=== PATIENT | male | born 1990 | race Hispanic/Latino ===

== ENCOUNTER 2023-04-18 19:21 | Emergency (ER) | payer SELFPAY ==
--- OUTSIDE RECORDS SUMMARY | 2023-04-18 19:24 | XMS REPORT | Continuity of Care Document ---
:1990 Author Organization [facility] t Address [address] [facility] [address] [place] [address] Care Team Providers Name Role Phone AKHIL LOZADA Attending Clinician Unavailable ADDISON HOGUE Attending Clinician Unavailable OZZY MARAVILLA Attending Clinician Unavailable SAMARA HUNG Attending Clinician Unavailable MYA AVILES Attending Clinician Unavailable MYA AVILES Admitting Clinician Unavailable Payers Payer Name Policy Type Policy Number Effective Date Expiration Date S ource Problems This patient has no known problems. Allergies, Adverse Reactions, Alerts This patient has no known allergies or adverse reactions. Medications This patient has no known medications. Procedures This patient has no known procedures. Encounters Start End Encounter Admission Attending Care Care Encounter Source Date/Time Date/Time Type Type Clinicians Facility Department ID 2021-12-29 Inpatient [facility] [id number] [facility] 14:04:06 [id number] [place] 2021-12-22 Inpatient [facility] [id number] [facility] 09:17:42 [id number] [place] 2021-12-18 Inpatient TEXANA TEXANA [id number] [place] 07:55:17 [id number] [place] 2022-05-01 2022-05-01 emergency [id number] 01:15:00 04:15:00 [phone] [id number] 5eb 2022-05-01 2022-05-01 Emergency ER CATKAYECU, [facility] [id number] [place] 01:15:00 04:15:00 AKHIL [id number] Critical access hospital 2022-04-30 2022-04-30 emergency [id number] 16:44:00 19:30:00 [id number] 2022-04-30 2022-04-30 Emergency ER LENNIE, [facility] [id number] [place] 16:44:00 19:30:00 ADDISON -[id number] Critical access hospital 2021-12-16 2021-12-16 Emergency ER TAIWO, [facility] [id number] [place] 20:43:00 22:26:00 OZZY [id number] Critical access hospital 2013-08-09 2013-08-09 Emergency ER ABHILASH, [facility] [id number] [place] 16:24:00 18:33:00 SAMARA [id number] Critical access hospital 2008-11-03 2008-11-03 Inpatient ER TRACI, [facility] [id number] [place] 05:03:00 15:15:00 MYA -[id number] Critical access hospital Results This patient has no known results.
--- NOTE | 2023-04-18 21:09 | ER ---
Nurse's Notes [facility] Name: Gt Lucio Age: 33 yrs Sex: Male : 1990 Arrival Date: 04/18/2023 Time: 19:21 Bed IW1 Private MD: Diagnosis: SARS-associated coronavirus as the cause of diseases classified elsewhere Presentation: 04/18 19:44 Chief complaint: Patient states: Cough, low grade temp since this morning. Coronavirus nj1 screen: Vaccine status: Patient reports being unvaccinated. Ebola Screen: Patient denies travel to an Ebola-affected area in the 21 days before illness onset. Initial Sepsis Screen: Does the patient meet any 2 criteria? No. Patient's initial sepsis screen is negative. Does the patient have a suspected source of infection? No. Patient's initial sepsis screen is negative. Risk Assessment: Do you want to hurt yourself or someone else? Patient reports no desire to harm self or others. Onset of symptoms was April 18, 2023. 19:44 Method Of Arrival: Ambulatory nj 19:44 Acuity: SUJEY 4 nj1 Triage Assessment: 19:46 General: Appears in no apparent distress. comfortable, Behavior is calm, cooperative, nj1 appropriate for age. Pain: Complains of pain in Head, throat Pain currently is 4 out of 10 on a pain scale. EENT: Reports Headache. Neuro: Level of Consciousness is awake, alert, obeys commands, Oriented to person, place, time, situation. Cardiovascular: Patient's skin is warm and dry. Respiratory: Airway is patent Respiratory effort is even, unlabored. Historical: - Allergies: 19:45 No Known Allergies; nj1 - PMHx: 19:45 None; nj1 - Immunization history:: Client reports having NOT received the Covid vaccine. - Social history:: Smoking status: Patient/guardian denies using tobacco, Stopped _ months ago 1. Screenin:48 [facility] ED Fall Risk Assessment (Adult) Score/Fall Risk Level 0 - 2 = Low Risk nj Oriented to surroundings, Maintained a safe environment, Hourly rounding (assess needs \T\ fall precautionary measures) done. Abuse screen: Denies threats or abuse. Denies injuries from another. Nutritional screening: No deficits noted. Tuberculosis screening: No symptoms or risk factors identified. Vital Signs: 19:44 BP 138 / 80; Pulse 88; Resp 18; Temp 98.7; Pulse Ox 100% on R/A; Weight 87.54 kg; nj1 Height 5 ft. 5 in. ; Pain 4/10; 19:44 Body Mass Index 32.12 (87.54 kg, 165.1 cm) nj1 19:44 Pain Scale: Adult banner ED Course: 19:25 Patient arrived in ED. 3 19:25 [facility] kb 19:25 Osmin Hughes MD is Attending Physician. kb 19:45 Triage completed. nj1 19:46 Arm band placed on right wrist. ri1 19:49 Patient has correct armband on for positive identification. ri1 21:19 No provider procedures requiring assistance completed. Patient did not have IV access bp during this emergency room visit. Administered Medications: No medications were administered Outcome: 21:08 Discharge ordered by MD. kb 21:19 Discharged to home ambulatory, bp 21:19 Condition: stable 21:19 Discharge instructions given to patient, Instructed on discharge instructions, follow up and referral plans. Demonstrated understanding of instructions, follow-up care, 21:19 Patient left the ED. bp Signatures: Jil Brar FNP-C FNP-Ckb Peltier, Brian, RN RN Esme Gonzalez 3 Emily Russell, RN RN banner Corrections: (The following items were deleted from the chart) 19:46 19:44 Coronavirus screen: Vaccine status: [place] [id number]
--- NOTE | 2023-04-18 21:09 | EDPHYS ---
Physician Documentation [facility] Name: Gt Lucio Age: 33 yrs Sex: Male : 1990 Arrival Date: 04/18/2023 Time: 19:21 Bed IW1 Private MD: ED Physician Osmin Hughes HPI: 04/18 21:08 This 33 yrs old Male presents to ER via Ambulatory with complaints of Fever. kb 21:08 Patient is a 33-year-old male with no medical history who presents for cough, kb congestion, sore throat and fever that started this morning. Denies chest pain or shortness of breath. Historical: - Allergies: 19:45 No Known Allergies; nj1 - PMHx: 19:45 None; nj1 - Immunization history:: Client reports having NOT received the Covid vaccine. - Social history:: Smoking status: Patient/guardian denies using tobacco, Stopped _ months ago 1. ROS: 21:07 Abdomen/GI: Negative for abdominal pain, nausea, vomiting, diarrhea, and constipation, kb 21:07 Constitutional: Positive for fever, 21:07 Respiratory: Positive for cough, 21:07 All other systems are negative, Exam: 21:07 Constitutional: This is a well developed, well nourished patient who is awake, alert, kb and in no acute distress. Head/Face: Normocephalic, atraumatic. ENT: Moist Mucous membranes Cardiovascular: Regular rate Respiratory: Respirations even and unlabored. No increased work of breathing. Talking in full sentences Abdomen/GI: Soft, non-tender. No distention Skin: Warm, dry with normal turgor. Normal color. MS/ Extremity: Pulses equal, no cyanosis. Neurovascular intact. Full, normal range of motion. Neuro: Awake and alert, GCS 15, oriented to person, place, time, and situation. Moves all extremities. Normal gait. Vital Signs: 19:44 BP 138 / 80; Pulse 88; Resp 18; Temp 98.7; Pulse Ox 100% on R/A; Weight 87.54 kg; nj1 Height 5 ft. 5 in. ; Pain 4/10; 19:44 Body Mass Index 32.12 (87.54 kg, 165.1 cm) [facility] 19:44 Pain Scale: Adult [facility] MDM: 19:25 Patient medically screened. kb 21:07 Differential diagnosis: covid, flu, uri, strep. Data reviewed: vital signs, nurses kb notes. I considered the following discharge prescriptions or medication management in the emergency department I discussed and recommended Over The Counter medications, Antibiotics: At this time antibiotics are not recommended. Counseling: I had a detailed discussion with the patient and/or guardian regarding the historical points, exam findings, and any diagnostic results supporting the discharge/admit diagnosis, lab results, the need for outpatient follow up, a family practitioner, to return to the emergency department if symptoms worsen or persist or if there are any questions or concerns that arise at home. 04/18 19:46 Order name: Flu; Complete Time: 21: kb 04/18 19:46 Order name: SARS-COV-2 RT PCR; Complete Time: : kb 04/18 19:46 Order name: Strep kb 04/18 21:04 Order name: Throat Culture EDMS Administered Medications: No medications were administered Disposition Summary: 04/18/23 21:08 Discharge Ordered Notes: Location: Home kb Condition: Stable kb Diagnosis - SARS-associated coronavirus as the cause of diseases classified elsewhere kb Followup: kb - With: Emergency Department - When: As needed - Reason: Worsening of condition Followup: kb - With: Private Physician - When: 2 - 3 days - Reason: Recheck today's complaints, Continuance of care, Re-evaluation by your physician Discharge Instructions: - Discharge Summary Sheet kb - COVID-19 kb - Viral Illness, Adult kb Forms: - Work release form kb - Medication Reconciliation Form kb - Thank You Letter kb - Antibiotic Education kb - Prescription Opioid Use kb - Patient Portal Instructions kb - Leadership Thank You Letter kb Addendum: 04/23/2023 07:52 I was immediately available for consultation during this patient's visit. I did not e c2 personally see the patient or guide the patient's care. . Signatures: Dispatcher [employer] Jil Pritchard FNP-C FNP-Emily Person RN RN nj1 Osmin Hughes MD MD ec2
[2023-04-18 21:23] VITALS: BP 138/80; TEMP 98.7; O2SAT 100
== END 2023-04-18 21:19 | disposition home or self-care (01) ==
LOC: ER 19:21
DX: U07.1 COVID-19 (principal)
CPT/HCPCS: 87070; 87081; 87635; 87804; 99282

== ENCOUNTER 2024-03-27 21:02 | Emergency (ER) | payer SELFPAY ==
--- OUTSIDE RECORDS SUMMARY | 2024-03-27 21:04 | XMS REPORT | Continuity of Care Document ---
Author Name Unknown Address [address] [facility] [place] [address] [facility] thconnect Address [address] [facility] [address] [place] [address] Care Team Providers Care Pump Servicer Supervisor Name Role Phone AKHIL LOZDAA Attending Clinician Unavailable ADDISON HOGUE Attending Clinician UnavailOZZY Estes Attending Clinician Unavailable SAMARA HUNG Attending Clinician Unavailab MYA Hernandez Attending Clinician Unavailable MYA AVILES Admitting Clinician Unavailable Payers Payer Name Policy Type Policy Number Effective Date Expirati on Date Source Encounters Start Date/Time End Date/Time Encounter Type Admission Type Attending Clinicians Care Facility Care Department Encounter ID Source 2021-12-29 14:04:06 Inpatient [facility] [id number] [facility] 2021-12-22 09:17:42 Inpatient [facility] [id number] [facility] 2021-12-18 07:55:17 Inpatient [facility] [id number] [facility] 2022-05-01 01:15:00 2022-05-01 04:15:00 emergency [id number] 2022-05-01 01:15:00 2022-05-01 04:15:00 Emergency ER AKHIL LOZADA [facility] [id number] [facility] 2022-04-30 16:44:00 2022-04-30 19:30:00 emergency [id number] 2022-04-30 16:44:00 2022-04-30 19:30:00 Emergency ER ADDISON HOGUE [facility] [id number] [facility] 2021-12-16 20:43:00 2021-12-16 22:26:00 Emergency ER FOUZIAMYESHARoel OZZY [facility] [id number] [facility] 2013-08-09 16:24:00 2013-08-09 18:33:00 Emergency ER SAMARA HUNG [facility] [id number] [facility] 2008-11-03 05:03:00 2008-11-03 15:15:00 Inpatient ER MYA AVILES [facility] [id number] [facility]
--- NOTE | 2024-03-27 22:15 | RAD REPORT ---
EXAMINATION: Elbow Left 3 View CLINICAL INDICATION: Male, 34 years old. PAIN TECHNIQUE: 3 view radiographs of the left elbow were obtained. COMPARISON: No prior exam. FINDINGS: No evidence of fracture or dislocation. Normal alignment. No joint effusion. No evidence of arthropathy. Exophytic osseous growth arising from the distal shaft of the humerus, projecting somewhat caudally, suggesting an osteochondroma. Enthesopathy at the triceps tendon attachment. Soft tissues are unremarkable. IMPRESSION: No acute osseous abnormality. 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 Enthesopathy at the triceps tendon attachment.
--- NOTE | 2024-03-27 22:21 | EDPHYS ---
Physician Documentation [facility] Name: Gt Lucio Age: 34 yrs Sex: Male : 1990 Arrival Date: 03/27/2024 Time: 21:02 Bed 12 Private MD: ED Physician Kings Garcia HPI: 03/27 21:43 This 34 yrs old Male presents to ER via Ambulatory with complaints of ELBOW kb SWELLING/PAIN. 21:43 Pt is a 34 year old male who presents for left elbow pain that started 3 weeks ago and kb started developing slight swelling a few days ago. Denies injury or trauma. Pain aggravated by movement . Historical: - Allergies: 21:10 No Known Allergies; kd3 - Immunization history:: Adult Immunizations up to date. - Infectious Disease History:: Denies. - Social history:: Smoking status: Patient reports the use of cigarette tobacco products, denies chronic smoking, but will smoke occasionally. ROS: 21:42 Constitutional: As per HPI kb Exam: 21:42 Constitutional: This is a well developed, well nourished patient who is awake, alert, kb and in no acute distress. Head/Face: Normocephalic, atraumatic. ENT: Moist Mucous membranes Respiratory: Respirations even and unlabored. No increased work of breathing. Talking in full sentences Skin: Warm, dry with normal turgor. Normal color. Neuro: Awake and alert, GCS 15, oriented to person, place, time, and situation. 21:42 Musculoskeletal/extremity: Extremities: grossly normal except: noted in the left elbow: pain, swelling, tenderness, ROM: limited active range of motion due to pain, in the left elbow, Circulation is intact in all extremities. Sensation intact. Vital Signs: 21:09 Pulse 102; Resp 16; Temp 98.6(O); Pulse Ox 96% on R/A; Weight 98.88 kg; Height 5 ft. 6 kd3 in. ; Pain 8/10; 21:10 BP 110 / 73; kd3 22:48 BP 108 / 68; Pulse 99; Resp 16; Pulse Ox 97% ; vc1 21:09 Body Mass Index 35.19 (98.88 kg, 167.64 cm) kd3 21:09 Pain Scale: Adult kd3 MDM: 21:12 Medical Screening Exam initiated kb 21:42 Differential diagnosis: fracture, strain, bursitis. Data reviewed: vital signs, nurses kb notes. 22:19 Counseling: I had a detailed discussion with the patient and/or guardian regarding the kb historical points, exam findings, and any diagnostic results supporting the discharge/admit diagnosis, radiology results, the need for outpatient follow up, a orthopedic surgeon, to return to the emergency department if symptoms worsen or persist or if there are any questions or concerns that arise at home. 03/27 21:13 Order name: Elbow Left 3 View XRAY; Complete Time: 22:19 kb Administered Medications: 22:46 Drug: Ketorolac IM 30 mg IM once Route: IM; Site: left deltoid; vc1 22:46 Follow up: Response: Medication administered at discharge. vc1 Disposition: 03/28 03:55 Co-signature as Attending Physician, Kings Garcia MD I agree with the assessment sp4 and plan of care. I reviewed the patient's care provided by the Advanced Practice Provider and agree with the diagnosis and treatment plan. Disposition Summary: 03/27/24 22:20 Discharge Ordered Notes: Location: Home kb Condition: Stable kb Diagnosis - Pain in left elbow kb Followup: kb - With: Emergency Department - When: As needed - Reason: Worsening of condition Followup: kb - With: Private Physician - When: 2 - 3 days - Reason: Recheck today's complaints, Continuance of care, Re-evaluation by your physician Discharge Instructions: - Discharge Summary Sheet kb - Musculoskeletal Pain kb Forms: - Medication Reconciliation Form kb - Antibiotic Education kb - Prescription Opioid Use kb - Patient Portal Instructions kb - Leadership Thank You Letter kb Prescriptions: - Diclofenac Sodium 75 mg Oral tablet, delayed release (enteric coated) - take 1 tablet ORAL route 2 times per day As needed; 30 tablet; Refills: 0, kb Product Selection Permitted Signatures: Dispatcher [employer] Jil Pritchard FNP-C FNP-Ckb Doucette, Kyli RN RN kd3 Dary Celis RN RN vc1 Kings Garcia MD MD sp4
--- NOTE | 2024-03-27 22:21 | ER ---
Nurse's Notes [facility] Name: Gt Lucio Age: 34 yrs Sex: Male : 1990 Arrival Date: 03/27/2024 Time: 21:02 Bed 12 Private MD: Diagnosis: Pain in left elbow Presentation: 03/27 21:10 Chief complaint: Patient states: I don't remember injuring my left elbow but about a kd3 month ago, my elbow has started to hurt. It is swelling a little and it is hard to bend it. Coronavirus screen: Vaccine status: Patient reports being unvaccinated. Ebola Screen: No symptoms or risks identified at this time. Initial Sepsis Screen: Does the patient meet any 2 criteria? No. Patient's initial sepsis screen is negative. Does the patient have a suspected source of infection? No. Patient's initial sepsis screen is negative. Risk Assessment: Do you want to hurt yourself or someone else? Patient reports no desire to harm self or others. Onset of symptoms was February 2024. 21:10 Method Of Arrival: Ambulatory kd3 21:10 Acuity: SUJEY 4 kd3 Triage Assessment: 21:10 General: Appears in no apparent distress. Behavior is calm, cooperative. Pain: kd3 Complains of pain in left elbow. Historical: - Allergies: 21:10 No Known Allergies; kd3 - Immunization history:: Adult Immunizations up to date. - Infectious Disease History:: Denies. - Social history:: Smoking status: Patient reports the use of cigarette tobacco products, denies chronic smoking, but will smoke occasionally. Screenin:52 [facility] ED Fall Risk Assessment (Adult) History of falling in the last 3 months, kd3 including since admission No falls in past 3 months (0 pts) Confusion or Disorientation No (0 pts) Intoxicated or Sedated No (0 pts) Impaired Gait No (0 pts) Mobility Assist Device Used No (0 pt) Altered Elimination No (0 pt) Score/Fall Risk Level 0 - 2 = Low Risk Oriented to surroundings. Abuse screen: Denies threats or abuse. Denies injuries from another. Nutritional screening: No deficits noted. Tuberculosis screening: No symptoms or risk factors identified. Assessment: 21:52 General: X-ray at bedside . kd3 Vital Signs: 21:09 Pulse 102; Resp 16; Temp 98.6(O); Pulse Ox 96% on R/A; Weight 98.88 kg; Height 5 ft. 6 kd3 in. ; Pain 8/10; 21:10 BP 110 / 73; kd3 22:48 BP 108 / 68; Pulse 99; Resp 16; Pulse Ox 97% ; vc1 21:09 Body Mass Index 35.19 (98.88 kg, 167.64 cm) kd3 21:09 Pain Scale: Adult kd3 ED Course: 21:04 Patient arrived in ED. jj6 21:09 Merry Koenig, RN is Primary Nurse. kd3 21:10 Arm band placed on right wrist. kd3 21:12 [facility]C [facility] kb 21:12 Kings Garcia MD is Attending Physician. kb 21:12 Triage completed. kd3 21:53 Patient has correct armband on for positive identification. Provided Education on: kd3 X-ray . 21:56 Elbow Left 3 View XRAY In Process Unspecified. EDMS 22:49 No provider procedures requiring assistance completed. Patient did not have IV access vc1 during this emergency room visit. Administered Medications: 22:46 Drug: Ketorolac IM 30 mg IM once Route: IM; Site: left deltoid; vc1 22:46 Follow up: Response: Medication administered at discharge. vc1 Medication: 21:53 VIS not applicable for this client. kd3 Outcome: 22:20 Discharge ordered by . kb 22:49 Discharged to home ambulatory, vc1 22:49 Condition: good 22:49 Discharge instructions given to patient, Instructed on discharge instructions, follow up and referral plans. medication usage, Demonstrated understanding of instructions, follow-up care, medications, Prescriptions given X 1, 23:02 Patient left the ED. vc1 Signatures: Dispatcher [employer] EDMS Jil Brar FNP-C FNP-Ckb Jeffries, Jennifer jj6 Merry Koenig, RN RN kd3 Dary Celis RN RN vc1
[2024-03-27] MEDS ORDERED: KETOROLAC 30 MG/ML INJ ONE (22:36)
[2024-03-28 05:21] VITALS: TEMP 98.6
[2024-03-28 05:39] VITALS: BP 108/68; O2SAT 97
== END 2024-03-27 23:02 | disposition home or self-care (01) ==
LOC: ER 21:02
DX: M25.522 Pain in left elbow (principal)
CPT/HCPCS: 96372; 99284

== ENCOUNTER 2024-04-17 12:27 | Emergency (ER) | payer SELFPAY ==
--- OUTSIDE RECORDS SUMMARY | 2024-04-17 12:30 | XMS REPORT | Continuity of Care Document ---
Author Name Unknown Address [address] [facility] [place] [address] [facility] thconnect Address [address] [facility] [place] [address] Care Team Providers Care Change Coordinator Name Role Phone AKHIL LOZADA Attending Clinician [...] Department Encounter ID Source 2021-12-29 14:04:06 Inpatient [facility] [id number] [facility] 2021-12-22 09:17:42 Inpatient [facility] [id number] [facility] 2021-12-18 07:55:17 Inpatient [facility] [id number] [facility] 2022-05-01 01:15:00 2022-05-01 04:15:00 emergency [id number] 2022-05-01 01:15:00 2022-05-01 04:15:00 Emergency ER AKHIL LZOADA [facility] [id number] [facility] 2022-04-30 16:44:00 2022-04-30 19:30:00 emergency [id number] 2022-04-30 16:44:00 2022-04-30 19:30:00 Emergency ER ADDISON HOGUE [facility] [id number] [facility] 2021-12-16 20:43:00 2021-12-16 22:26:00 Emergency ER SERGIOCYNDIMARY JANEMYESHARoelOZZY [facility] [id number] [facility] 2013-08-09 16:24:00 2013-08-09 18:33:00 Emergency ER SAMARA HUNG [facility] [id number] [facility] 2008-11-03 05:03:00 2008-11-03 15:15:00 Inpatient ER MYA AVILES [facility] [id number] [facility]
--- NOTE | 2024-04-17 13:57 | RAD REPORT ---
EXAMINATION: US LEFT UPPER EXTREMITY VENOUS DOPPLER CLINICAL INDICATION: Pain;Swelling TECHNIQUE: Complete bilateral duplex sonography of the LEFT upper extremity veins was performed. The examination included compression for vein patency, color Doppler imaging and flow augmentation in response to distal compression of the internal jugular, brachiocephalic, subclavian, axillary, brachi al, radial, ulnar, cephalic and basilic veins. COMPARISON: No prior exam. FINDINGS: Duplex sonography testing of the veins of the LEFT upper extremity was performed. Color flow imaging shows all veins to be compressible with [id number] color filling. Pulsatile and phasic flow is present within all upper extremity deep and superficial veins examined. IMPRESSION: There is no deep vein or superficial vein thrombosis.
[2024-04-17] MEDS ORDERED: KETOROLAC 30 MG/ML INJ ONE (14:13)
--- NOTE | 2024-04-17 14:16 | EDPHYS ---
Physician Documentation [facility] Name: Gt Lucio Age: 34 yrs Sex: Male : 1990 Arrival Date: 04/17/2024 Time: 12:27 Bed 11 Private MD: ED Physician Jann Wright HPI: 04/17 13:38 This 34 yrs old Male presents to ER via Ambulatory with complaints of ELBOW kb SWELLING. 13:38 Pt is a 34 year old male who presents for pain and swelling to left elbow that started kb one week ago. Pain aggravated by bending elbow. Reports he had similar symptoms one month ago after donating plasma and they hit his tendon. States he took antibiotics and the swelling went away, but once the antibiotics were completed the symptoms started coming back. Denies injury or trauma. pain is to outer most aspect of elbow, not in the joint itself. . 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 - Infectious Disease History:: Denies. - Social history:: Smoking status: Patient/guardian denies using tobacco, Stopped _ months ago .25 Patient uses alcohol, states stopped drinking last . ROS: 13:06 Constitutional: As per HPI kb Exam: 13:37 Constitutional: This is a well developed, well nourished patient who is awake, alert, kb and in no acute distress. Head/Face: Normocephalic, atraumatic. ENT: Moist Mucous membranes Cardiovascular: Regular rate Respiratory: Respirations even and unlabored. No increased work of breathing. Talking in full sentences Skin: Warm, dry with normal turgor. Normal color. Neuro: Awake and alert, GCS 15, oriented to person, place, time, and situation. 13:37 Musculoskeletal/extremity: Extremities: grossly normal except: noted in the left elbow: pain, swelling, tenderness, ROM: limited active range of motion due to pain, Circulation is intact in all extremities. Sensation intact. Vital Signs: 12:39 BP 162 / 92; Pulse 78; Resp 17; Temp 98.2(O); Pulse Ox 100% on R/A; MAP 112 mmHg; tm6 Weight 97.98 kg; Height 5 ft. 6 in. ; Pain 4/10; 14:24 BP 128 / 80; Pulse 75; Resp 16; Temp 98.2; Pulse Ox 100% on R/A; MAP 93 mmHg; Pain 2/10;tm6 12:39 Body Mass Index 34.86 (97.98 kg, 167.64 cm) tm6 12:39 Pain Scale: Adult tm6 14:24 Pain Scale: Adult tm6 MDM: 13:00 Medical Screening Exam initiated kb 13:38 Data reviewed: vital signs, nurses notes. kb 14:14 Differential diagnosis: tendonitis, bursitis, dvt. Counseling: I had a detailed kb discussion with the patient and/or guardian regarding the historical points, exam findings, and any diagnostic results supporting the discharge/admit diagnosis, radiology results, the need for outpatient follow up, a orthopedic surgeon, to return to the emergency department if symptoms worsen or persist or if there are any questions or concerns that arise at home. 14:15 Test considered but Not performed: X-ray: xray considered but was previously done and kb normal. 14:16 ED course: Pt educated on need to rest elbow. States he was putting up a fence 3 days kb ago and believes that is what caused it to start swelling again. Educated on using a brace, icing area and follow up with orthopedics. . 04/17 13:14 Order name: UPPER EXTREMITY VENOUS UNILATE; Complete Time: 13:58 EDMS 04/17 14:14 Order name: Preston Wrap; Complete Time: 14:23 kb Administered Medications: 14:16 Drug: Ketorolac IM 30 mg IM once Route: IM; Site: left deltoid; tm6 14:16 Follow up: Response: Medication administered at discharge. tm6 Disposition: 16:51 Co-signature as Attending Physician, Jann Wright MD I reviewed the patient's care rt provided by the Advanced Practice Provider and agree with the diagnosis and treatment plan. Disposition Summary: 04/17/24 14:15 Discharge Ordered Notes: Location: Home kb Condition: Stable kb Diagnosis - Pain in left elbow kb Followup: kb - With: Emergency Department - When: As needed - Reason: Worsening of condition Followup: kb - With: Private Physician - When: 2 - 3 days - Reason: Recheck today's complaints, Continuance of care, Re-evaluation by your physician Discharge Instructions: - Discharge Summary Sheet kb - Tennis Elbow, [id number] kb Forms: - Medication Reconciliation Form kb - Antibiotic Education kb - Prescription Opioid Use kb - Patient Portal Instructions kb - Leadership Thank You Letter kb Prescriptions: - Diclofenac Sodium 75 mg Oral tablet, delayed release (enteric coated) - take 1 tablet ORAL route 2 times per day As needed; 30 tablet; Refills: 0, kb Product Selection Permitted Signatures: Dispatcher [employer] EDJil Sanabria, PERFUMER-C PERFUMER-Ckb Jann Wright MD MD rt [facility] RN RN tm6 Corrections: (The following items were deleted from the chart) 12: 12:42 PSHx: None; tm6 tm6 1244 12:42 PSHx: left arm -- cut tendon and nerve damage; tm6 tm6 13:14 13:07 Extremity Venous Uni [id number] ordered. EDMS EDMS
--- NOTE | 2024-04-17 14:16 | ER ---
Nurse's Notes [facility] Name: Gt Lucio Age: 34 yrs Sex: Male : 1990 Arrival Date: 04/17/2024 Time: 12:27 Bed 11 Private MD: Diagnosis: Pain in left elbow Presentation: 04/17 12:39 Chief complaint: Patient states: swollen elbow started a few weeks ago, they said I tm6 have an infection in my tendon and gave me an antibiotic. It got a little better, but slowly has started to come back. It is swollen again and painful. Coronavirus screen: Client denies travel out of the [place] in the last 14 days. Ebola Screen: Patient negative for fever greater than or equal to 101.5 degrees Fahrenheit, and additional compatible Ebola Virus Disease symptoms Patient denies exposure to infectious person. Patient denies travel to an Ebola-affected area in the 21 days before illness onset. No symptoms or risks identified at this time. Initial Sepsis Screen: Does the patient meet any 2 criteria? No. Patient's initial sepsis screen is negative. Does the patient have a suspected source of infection? No. Patient's initial sepsis screen is negative. Risk Assessment: Do you want to hurt yourself or someone else? Patient reports no desire to harm self or others. Onset of symptoms was March 27, 2024. 12:39 Method Of Arrival: Ambulatory tm6 12:39 Acuity: SUJEY 3 tm6 Triage Assessment: 12:43 General: Appears in no apparent distress. Behavior is calm, cooperative. Pain: tm6 Complains of pain in left tricep and left elbow Pain currently is 5 out of 10 on a pain scale. at worst was 10 out of 10 on a pain scale. Pain began a few weeks ago. EENT: No signs and/or symptoms were reported regarding the EENT system. Neuro: Level of Consciousness is awake, alert, obeys commands, Oriented to person, place, time, situation. Cardiovascular: Patient's skin is warm and dry. Respiratory: Airway is patent Respiratory effort is even, unlabored, Respiratory pattern is regular, symmetrical. GI: Abdomen is flat, non-distended. : No signs and/or symptoms were reported regarding the genitourinary system. Derm: No signs and/or symptoms reported regarding the dermatologic system. Musculoskeletal: Reports pain in left tricep and left elbow since a few weeks ago. 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 - Infectious Disease History:: Denies. - Social history:: Smoking status: Patient/guardian denies using tobacco, Stopped _ months ago .25 Patient uses alcohol, states stopped drinking last . Screenin:12 Abuse screen: Denies threats or abuse. Denies injuries from another. Nutritional ss screening: No deficits noted. Tuberculosis screening: Never had TB. 14:24 [facility] ED Fall Risk Assessment (Adult) History of falling in the last 3 months, tm6 including since admission No falls in past 3 months (0 pts) Confusion or Disorientation No (0 pts) Intoxicated or Sedated No (0 pts) Impaired Gait No (0 pts) Mobility Assist Device Used No (0 pt) Altered Elimination No (0 pt) Score/Fall Risk Level 0 - 2 = Low Risk Oriented to surroundings, Maintained a safe environment, Educated pt \T\ family on fall prevention, incl call for assistance when getting out of bed. Assessment: 14:12 General: Appears in no apparent distress. comfortable, Behavior is calm, cooperative. ss Pain: Complains of pain in L elbow Pain currently is 4 out of 10 on a pain scale. Quality of pain is described as aching, tender, Is continuous. Neuro: Level of Consciousness is awake, alert, obeys commands, Oriented to person, place, time, situation. Cardiovascular: Capillary refill < 3 seconds is brisk in bilateral fingers. Respiratory: Airway is patent Respiratory effort is even, unlabored, Respiratory pattern is regular, symmetrical. Derm: Skin is intact, is healthy with good turgor, Skin is dry, Skin is pink, warm \T\ dry. normal. Musculoskeletal: Circulation, motion, and sensation intact. Range of motion: intact in all extremities, Swelling present in left elbow. Vital Signs: 12:39 BP 162 / 92; Pulse 78; Resp 17; Temp 98.2(O); Pulse Ox 100% on R/A; MAP 112 mmHg; tm6 Weight 97.98 kg; Height 5 ft. 6 in. ; Pain 4/10; 14:24 BP 128 / 80; Pulse 75; Resp 16; Temp 98.2; Pulse Ox 100% on R/A; MAP 93 mmHg; Pain 2/10;tm6 12:39 Body Mass Index 34.86 (97.98 kg, 167.64 cm) tm6 12:39 Pain Scale: Adult tm6 14:24 Pain Scale: Adult tm6 ED Course: 12:31 Patient arrived in ED. mg5 12:42 Triage completed. tm6 12:43 Arm band placed on right wrist. tm6 12:59 Jil Brar FNP-C is [facility]. kb 12:59 Jann Wright MD is Attending Physician. kb 13:52 UPPER EXTREMITY VENOUS UNILATE In Process Unspecified. EDMS 14:12 Rohini Villareal, RN is Primary Nurse. ss 14:12 Patient has correct armband on for positive identification. Bed in low position. ss 14:23 Patient did not have IV access during this emergency room visit. Preston wrap to left elbow.tm6 14:24 Provided Education on: use of prescription. tm6 14:24 No provider procedures requiring assistance completed. tm6 Administered Medications: 14:16 Drug: Ketorolac IM 30 mg IM once Route: IM; Site: left deltoid; tm6 14:16 Follow up: Response: Medication administered at discharge. tm6 Medication: 14:12 VIS not applicable for this client. ss Outcome: 14:15 Discharge ordered by MD. kb 14:24 Discharged to home ambulatory, tm6 14:24 Condition: stable 14:24 Discharge instructions given to patient, Instructed on discharge instructions, follow up and referral plans. medication usage, Demonstrated understanding of instructions, follow-up care, medications, Prescriptions given X 1, 14:25 Patient left the ED. tm6 Signatures: Dispatcher [employer] EDNJ Jil Brar FNP-C [employer]-Rohini Aguilar, RN RN Deb Mack mg5 [facility] RN RN tm6 Corrections: (The following items were deleted from the chart) 12:44 12:42 PSHx: None; tm6 tm6 12:44 12:42 PSHx: left arm -- cut tendon and nerve damage; tm6 tm6
[2024-04-17 14:43] VITALS: TEMP 98.2; O2SAT 100
[2024-04-17 14:44] VITALS: BP 128/80
== END 2024-04-17 14:25 | disposition home or self-care (01) ==
LOC: ER 12:27
DX: M25.522 Pain in left elbow (principal)
CPT/HCPCS: 93971

== ENCOUNTER 2024-10-03 07:18 | Emergency (ER) | payer OTHER, SELFPAY ==
--- OUTSIDE RECORDS SUMMARY | 2024-10-03 07:20 | XMS REPORT | Continuity of Care Document ---
Author Name Unknown Address [address] [place] [address] [facility] [address] [place] [address] Care Team Providers Care Superintendent [employer] [place] Name Role Phone AKHIL LOZADA Attending Clinician [...] Department Encounter ID Source 2021-12-29 14:04:[address] [facility] [id number] [facility] 2021-12-22 09:17:[address] [facility] [id number] [facility] 2021-12-18 07:55:17 [facility] [id number] [facility] 2022-05-01 01:15:00 2022-05-01 04:15:00 emergency [id number] 2022-05-01 01:15:00 2022-05-01 04:15:00 Emergency ER AKHIL LOZADA [facility] [id number] [facility] 2022-04-30 16:44:00 2022-04-30 19:30:00 emergency [id number] 2022-04-30 16:44:00 2022-04-30 19:30:00 Emergency ER ADDISON HOGUE [facility] [id number] [facility] 2021-12-16 20:43:00 2021-12-16 22:26:00 Emergency ER SERGIOCYNDIMARY JANEMYESHARoelOZZY [facility] [id number] [facility] 2013-08-09 16:24:00 2013-08-09 18:33:00 Emergency ER SAMARA HUNG [facility] [id number] [facility] 2008-11-03 05:03:00 2008-11-03 15:15:00 Inpatient ER MYA AVILES [facility] [id number] [facility]
[2024-10-03] MEDS ORDERED: VALACYCLOVIR 500 MG TAB ONE (08:30)
[2024-10-03] MEDS ORDERED: CEFTRIAXONE 1000 MG/VIAL ONE (08:32)
[2024-10-03] MEDS ORDERED: LIDOCAINE 1% MPF 5 ML VIAL ONE (08:32)
[2024-10-03] MEDS ORDERED: AZITHROMYCIN 250 MG TAB ONE (08:33)
[2024-10-03] MEDS ORDERED: DOXYCYCLINE 100 MG CAP PO ONE (08:33)
--- NOTE | 2024-10-03 08:55 | ER ---
Nurse's Notes [facility] Name: Gt Lucio Age: 34 yrs Sex: Male : 1990 Arrival Date: 10/03/2024 Time: 07:18 Bed 20 Private MD: Diagnosis: Unspecified sexually transmitted disease Presentation: 10/03 08:19 Chief complaint: Patient states: has a sore on tip of his penis X 2 days. Coronavirus iw screen: At this time, the client does not indicate any symptoms associated with coronavirus-19. Ebola Screen: No symptoms or risks identified at this time. Initial Sepsis Screen: Does the patient meet any 2 criteria? No. Patient's initial sepsis screen is negative. Does the patient have a suspected source of infection? No. Patient's initial sepsis screen is negative. Risk Assessment: Do you want to hurt yourself or someone else? Patient reports no desire to harm self or others. Onset of symptoms was October 01, 2024. 08:19 Method Of Arrival: Ambulatory iw 08:19 Acuity: SUJEY 4 iw Screenin:23 [facility] ED Fall Risk Assessment (Adult) History of falling in the last 3 months, iw including since admission No falls in past 3 months (0 pts) Confusion or Disorientation No (0 pts) Intoxicated or Sedated No (0 pts) Impaired Gait No (0 pts) Mobility Assist Device Used No (0 pt) Altered Elimination No (0 pt) Score/Fall Risk Level 0 - 2 = Low Risk Oriented to surroundings, Maintained a safe environment. Abuse screen: Denies threats or abuse. Nutritional screening: No deficits noted. Tuberculosis screening: No symptoms or risk factors identified. Assessment: 08:22 General: Appears in no apparent distress. Behavior is calm, cooperative. Pain: iw Complains of pain in head of penis Pain. Neuro: Level of Consciousness is awake, alert, obeys commands, Oriented to person, place, time, situation. Cardiovascular: Patient's skin is warm and dry. Respiratory: Respiratory effort is even, unlabored, Respiratory pattern is regular, symmetrical. GI: Abdomen is. Derm: Skin is intact, Rash noted that is flat, purple spots on lower abdomen. ED Course: 08:18 Patient arrived in ED. ty 08:19 Kristyn Rae, RN is Primary Nurse. iw 08:20 Triage completed. iw 08:21 Arm band placed on. iw 08:26 Andrew Lux MD is Attending Physician. phoebe Administered Medications: No medications were administered Medication: 08:23 VIS not applicable for this client. iw Outcome: 08:54 Discharge ordered by . iw 09:07 Patient left the ED. iw Signatures: Andrew Lux MD MD cha Williams, Irene, RN RN Edu Eldridge
[2024-10-07 14:58] LABS: HSV Source Not Given
== END 2024-10-03 09:07 | disposition home or self-care (01) ==
LOC: ER 07:18
DX: A64 Unspecified sexually transmitted disease (principal)
CPT/HCPCS: 99281; 87255; J2003; J0696

== ENCOUNTER 2025-01-21 16:26 | Inpatient (IN) | payer OTHER ==
--- OUTSIDE RECORDS SUMMARY | 2025-01-21 16:30 | XMS REPORT | Continuity of Care Document ---
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 Recommendation(s): 34 yo hand injury s/p laceration repair discharged today. OBS AMA [id number] 03:15:32 The patient is Moderately Stable - Low risk of patient condition declining or worsening The patient's goals for the shift include PAIN CONTROL The clinical goals for the shift include OR TODAY T [id number] 22:01:49 Pt is requesting to leave AMA. Pt is 1 hour post op and has been educated about the risk of leaving against medical advice. Provider has been notified. [facility] [id number] 15:23:08 The patient is Moderately Stable - Low risk of patient condition declining or worsening The patient's goals for the shift include PAIN CONTROL The clinical goals for the shift include OR TODAY [facility] Calloway
[2025-01-21 18:23] LABS: Absolute Lymphocytes (CBC) 1.9 K/uL (0.7-4.9); Hematocrit 51.9 % (39.6-49.0); Hemoglobin 18.0 g/dL (13.6-17.9); MCH 31.2 pg (27.0-35.0); MCHC 34.7 g/dL (32.0-36.0); MCV 89.9 fL (80-100); MPV 8.5 fL (7.6-11.3); Nucleated RBC Absolute Count 0.0 (0-0); Nucleated Red Blood Cells % 0.1 % (0-0); RBC Red Blood Cell Count 5.77 M/uL (4.33-5.43); White Blood Count 18.50 thou/uL (4.3-10.9)
[2025-01-21 18:41] LABS: ALT/SGPT 62.0 U/L (16-61); AST/SGOT 59.0 U/L (15-37); Albumin 5.9 g/dL (3.4-5.0); Albumin/Globulin Ratio 1.4 (1.1-1.8); Alkaline Phosphatase 104.0 U/L (45-117); Anion Gap 15.5 mEq/L (5.0-15.0); BUN Blood Urea Nitrogen 28.0 mg/dL (7-18); Globulin 4.2 g/dL (2.3-3.5); Glucose Level 143.0 mg/dL (74-106); Lipase 19.0 U/L (13-75); Potassium 3.5 mEq/L (3.5-5.1)
[2025-01-21] MEDS ORDERED: ONDANSETRON 4 MG/2 ML VIAL ONE (18:45)
[2025-01-21] MEDS ORDERED: KETOROLAC 30 MG/ML INJ ONE (18:45)
[2025-01-21] MEDS ORDERED: FAMOTIDINE 20 MG/2 ML VIAL IV ONE (18:45)
[2025-01-21] MEDS ORDERED: NA CHLORIDE 0.9% 1,000 ML ONE (18:45)
--- NOTE | 2025-01-21 18:46 | RAD REPORT ---
EXAMINATION: Abdomen Pelvis W Contrast CLINICAL INDICATION: Male, 34 years old.ABD PAIN TECHNIQUE: CT abdomen and pelvis was performed, after the administration of IV contrast, as per [facility]. Axial, sagittal and coronal reconstructions were obtained. One or more of the following dose reduction techniques were used: Automated exposure control, adjustment of the mA and/o r kV according to patient size, and/or iterative reconstruction. Unless otherwise specified, incidental findings do not require dedicated imaging follow-up. [id number]. COMPARISON: No prior exams FINDINGS: LOWER CHEST: No acute process identified.No significant pericardial effusion. UPPER GI: No significant abnormality. LIVER: Hepatic steatosis, but otherwise unremarkable. GALLBLADDER/BILE DUCTS: No biliary ductal dilatation.? PANCREAS: No mass, ductal dilation, or cassy-pancreatic fluid. SPLEEN: Unremarkable. ADRENALS: No adrenal masses. KIDNEYS AND URETERS: No hydronephrosis.No suspicious renal mass.No renal calculi.No ureteral calculi. ABDOMINAL AORTA AND OTHER VESSELS: Normal caliber aorta and IVC. PERITONEUM: No abnormal free fluid. No free air. LYMPH NODES: No pathologic lymphadenopathy. ABDOMINAL WALL: Unremarkable SMALL BOWEL/COLON: Small bowel has normal course and caliber. No colonic wall thickening or pericolon ic inflammatory changes.Normal appendix. URINARY BLADDER: Underdistended but grossly unremarkable. REPRODUCTIVE ORGANS: No pathologic process. MUSCULOSKELETAL: Moderate disc height loss. ADDITIONAL FINDINGS: None. IMPRESSION: No acute findings within the abdomen or pelvis.
--- NOTE | 2025-01-21 19:00 | ER ---
Nurse's Notes [facility] Name: Gt Lucio Age: 34 yrs Sex: Male : 1990 Arrival Date: 01/21/2025 Time: 16:26 Bed 14 Private MD: Diagnosis: Acute kidney failure, unspecified Presentation: 01/21 17:17 Chief complaint: Patient states: STOMACH PAIN THAT STARTED TODAY. PT ALSO STATES NEEDS dd2 DRESSING CHANGE ON RT HAND FROM A SURGERY HE HAD 2 WEEKS AGO. Coronavirus screen: At this time, the client does not indicate any symptoms associated with coronavirus-19. Ebola Screen: No symptoms or risks identified at this time. Initial Sepsis Screen: Does the patient meet any 2 criteria? No. Patient's initial sepsis screen is negative. Does the patient have a suspected source of infection? No. Patient's initial sepsis screen is negative. Risk Assessment: Do you want to hurt yourself or someone else? Patient reports no desire to harm self or others. Onset of symptoms was January 21, 2025. 17:17 Method Of Arrival: Ambulatory dd2 17:17 Acuity: SUJEY 3 dd2 Triage Assessment: 17:23 General: Appears in no apparent distress. uncomfortable, Behavior is cooperative, dd2 appropriate for age, anxious. Pain: Complains of pain in abdomen. GI: Reports lower abdominal pain, upper abdominal pain, nausea, vomiting. Historical: - Allergies: 17:23 No Known Allergies; dd2 - PMHx: 17:23 None; dd2 - PSHx: 17:23 right arm -- cut tendon and nerve damage; dd2 - Immunization history:: Adult Immunizations unknown. - Infectious Disease History:: Denies. - Social history:: Smoking status: Reported history of juuling and/or vaping. Patient uses street drugs, cocaine, Methamphetamine (Meth). Vital Signs: 17:17 BP 135 / 105; Pulse 116; Resp 16; Temp 98.4; Pulse Ox 99% on R/A; Weight 101.15 kg; dd2 Pain 10/10; 21:00 BP 110 / 73; Pulse 71; Resp 17; Temp 98; Pulse Ox 99% on R/A; Pain 2/10; rg5 17:17 Pain Scale: Adult dd2 21:00 Pain Scale: Adult rg5 ED Course: 16:43 Patient arrived in ED. cj3 17:01 Sienna Knutson [facility] sb4 17:01 Andrew Lux MD is Attending Physician. sb4 17:23 Triage completed. dd2 17:23 Arm band placed on left wrist. dd2 17:41 Radiology exam delayed due to lab results not completed at this time. (BUN/Creatinine) nj IV insertion attempt and/or patient not having appropriate IV at this time. 18:17 Patient placed in an exam room, on a stretcher. ap3 18:17 CBC with Diff Sent. bc6 18:17 CMP Sent. bc6 18:17 Lipase Sent. bc6 18:17 Initial lab(s) drawn, by me, sent to lab. Inserted saline lock: 20 gauge in left bc6 antecubital area, using aseptic technique. Blood collected. Flushed with 10 mL NS. 18:30 CT Abd/Pelvis - IV Contrast Only In Process Unspecified. EDMS 18:35 Magdy Lindo RN is Primary Nurse. rg5 18:59 Alverto Whitaker MD is Hospitalizing Provider. sb4 Administered Medications: 18:51 CANCELLED (Physician Discretion): TORadol - [id number] mg IVP once sb4 18:55 Drug: Famotidine IVP 20 mg IVP once; dilute with 10 mL 0.9% NaCl; give over 2 minutes rg5 Route: IVP; Site: left antecubital; 20:22 Follow up: Response: No adverse reaction rg5 18:55 Drug: Ondansetron IVP 4 mg IVP once; over 2 minutes Route: IVP; Site: left antecubital; rg5 20:23 Follow up: Response: No adverse reaction rg5 18:55 Drug: NS 0.9% IV 1000 ml IV at 1 bolus Per protocol; to be given as a bolus over 60 rg5 minutes Route: IV; Rate: 1 bolus; Site: left antecubital; Outcome: 18:59 Decision to Hospitalize by Provider. sb4 21:42 Patient left the ED. rg5 Signatures: Dispatcher [employer] EDMS Kike Hampton Amanda, RN RN ap3 Sienna Knutson PA-C PA-C sb4 Lorna Calloway bc6 Magdy Lindo RN RN rg5 BRITT FLORENTINO RN RN dd2 Nu [place] cj3 Corrections: (The following items were deleted from the chart) 17:23 17:23 Social history: Smoking status: Patient denies any tobacco usage or history of. ann2 dd2
--- NOTE | 2025-01-21 19:00 | EDPHYS ---
Physician Documentation [facility] Name: Gt Lucio Age: 34 yrs Sex: Male : 1990 Arrival Date: 01/21/2025 Time: 16:26 Bed 14 Private MD: SENIA Physician Andrew Lux HPI: 01/21 18:08 This 34 yrs old Male presents to ER via Ambulatory with complaints of sb4 Abdominal Pain, Wound Check - ARM. 18:08 Diffuse abdominal pain since this morning with associated nausea and vomiting. No sb4 diarrhea or constipation. Does admit to using cocaine and amphetamines yesterday. Is also requesting a dressing change on his right hand where he had surgery about a week ago. Historical: - Allergies: 17:23 No Known Allergies; dd2 - PMHx: 17:23 None; dd2 - PSHx: 17:23 right arm -- cut tendon and nerve damage; dd2 - Immunization history:: Adult Immunizations unknown. - Infectious Disease History:: Denies. - Social history:: Smoking status: Reported history of juuling and/or vaping. Patient uses street drugs, cocaine, Methamphetamine (Meth). ROS: 18:08 Constitutional: Negative for fever, chills, and weight loss, sb4 18:08 Abdomen/GI: Positive for abdominal pain, nausea and vomiting, 18:08 All other systems are negative, Exam: 18:08 Head/Face: Normocephalic, atraumatic. Eyes: Extra-ocular motions intact. Periorbital sb4 areas with no swelling, redness, or edema. ENT: Mucous membranes moist. Respiratory: No increased work of breathing, no retractions or nasal flaring. Abdomen/GI: Soft, non-tender, no distension. 18:08 Constitutional: The patient appears alert, awake, restless, 18:08 Cardiovascular: Rate: tachycardic, Rhythm: regular, 18:08 Skin: Appearance: diaphoresis is noted, Vital Signs: 17:17 BP 135 / 105; Pulse 116; Resp 16; Temp 98.4; Pulse Ox 99% on R/A; Weight 101.15 kg; dd2 Pain 10/10; 21:00 BP 110 / 73; Pulse 71; Resp 17; Temp 98; Pulse Ox 99% on R/A; Pain 2/10; rg5 17:17 Pain Scale: Adult dd2 21:00 Pain Scale: Adult rg5 MDM: 17:20 Medical Screening Exam initiated sb4 18:09 Differential diagnosis: cholecystitis, Cholelithiasis, gastritis, gastroesophageal sb4 reflux disease, non-specific abd pain, pancreatitis, Anxiety, drug abuse, constipation. 19:03 Data reviewed: vital signs, nurses notes, lab test result(s), radiologic studies, and sb4 as a result, I will admit patient. Consideration of Admission/Observation Patient was admitted/placed on observation. Counseling: I had a detailed discussion with the patient and/or guardian regarding the historical points, exam findings, and any diagnostic results supporting the discharge/admit diagnosis, the presence of at least one elevated blood pressure reading (>120/80) during this emergency department visit, lab results, radiology results, the need for further work-up and treatment in the hospital. 01/22 19:36 Management of patient was discussed with the following: Hospitalist: Dr. Whitaker, agrees sb4 to admit. Care significantly affected by the following Social Determinants of Health: Misuse of alcohol and/or drugs. Admission orders: after a detailed discussion of the patient's condition and case, the admit orders are written by me. 01/21 17:27 Order name: CBC with Diff; Complete Time: 18:26 sb4 01/21 17:27 Order name: CMP; Complete Time: 18:41 sb4 01/21 17:27 Order name: Lipase; Complete Time: 18:41 sb4 01/21 18:57 Order name: UA Rfx Owen Cult if indicated; Complete Time: 08:04 sb4 01/21 18:57 Order name: UDS; Complete Time: 08:04 sb4 01/21 19:00 Order name: CK; Complete Time: 08:04 sb4 01/21 19:00 Order name: VBG; Complete Time: 19:36 sb4 01/21 20:04 Order name: CBC with Automated Diff EDMS 01/21 20:04 Order name: CBC with Automated Diff EDMS 01/21 20:04 Order name: Comprehensive Metabolic Panel EDMS 01/21 20:04 Order name: Comprehensive Metabolic Panel EDMS 01/21 20:04 Order name: Creatine Phosphokinase EDMS 01/21 20:04 Order name: Creatine Phosphokinase EDMS 01/21 20:04 Order name: Creatine Phosphokinase EDMS 01/21 20:04 Order name: Creatine Phosphokinase [facility] 01/21 17:27 Order name: CT Abd/Pelvis - IV Contrast Only; Complete Time: 18:50 sb4 01/21 17:27 Order name: IV Saline Lock; Complete Time: 18:17 sb4 01/21 17:27 Order name: Labs collected and sent; Complete Time: 18:17 sb4 01/21 17:27 Order name: Wound dressing; Complete Time: 21:02 sb4 Administered Medications: 01/21 18:51 CANCELLED (Physician Discretion): TORadol - [id number] mg IVP once sb4 18:55 Drug: Famotidine IVP 20 mg IVP once; dilute with 10 mL 0.9% NaCl; give over 2 minutes rg5 Route: IVP; Site: left antecubital; 20:22 Follow up: Response: No adverse reaction rg5 18:55 Drug: Ondansetron IVP 4 mg IVP once; over 2 minutes Route: IVP; Site: left antecubital; rg5 20:23 Follow up: Response: No adverse reaction rg5 18:55 Drug: NS 0.9% IV 1000 ml IV at 1 bolus Per protocol; to be given as a bolus over 60 rg5 minutes Route: IV; Rate: 1 bolus; Site: left antecubital; Disposition Summary: 01/21/25 18:59 Hospitalization Ordered Notes: Hospitalization Status: Inpatient Admission sb4 Provider: Alverto Whitaker Location: Telemetry/[facility] (Inpatient) sb4 Condition: Stable sb4 Problem: new sb4 Symptoms: are unchanged sb4 Bed/Room Type: Standard sb4 Room Assignment: 402(01/21/25 20:37) rv1 Diagnosis - Acute kidney failure, unspecified sb4 Forms: - Medication Reconciliation Form sb4 - SBAR form sb4 - Leadership Thank You Letter sb4 Addendum: 01/24/2025 14:34 Co-signature as Attending Physician, Andrew Lux MD I agree with the assessment and c acosta plan of care. Signatures: Dispatcher [employer] Andrew Kaur MD MD cha Brown, Sophia, PA-C PA-C sb4 Erlinda Martin rv1 Magdy Lindo RN RN rg5 BRITT FLORENTINO RN RN dd2 Corrections: (The following items were deleted from the chart) 01/21 17:23 17:23 Social history: Smoking status: Patient denies any tobacco usage or history of. dd2 dd2 18:51 17:27 TORadol - Ketorolac IVP 15 mg IVP once ordered. sb4 sb4 20:37 18:59 sb4 rv1
[2025-01-21 19:34] LABS: Base Excess, VBG -1.5 mmol/L (-2.0-3.0); HCO3, Venous Blood Gas 24.3 mmol/L (21.0-29.0); O2 Saturation, VBG 83.3 % (40.0-70.0); PCO2, Venous Blood Gas 45 mmHg (41-51); PH, Venous Blood Gas 7.34 (7.32-7.42); PO2, Venous Blood Gas 51 mmHg (25-40)
[2025-01-21] MEDS ORDERED: ONDANSETRON 4 MG/2 ML VIAL IV PRN (20:00)
[2025-01-21] MEDS ORDERED: ACETAMINOPHEN 325 MG TABLET PO PRN (20:00)
[2025-01-21] MEDS: NA CHLORIDE 0.9% 1,000 ML IV SCH (20:00)
--- NOTE | 2025-01-21 20:00 | P.HP ---
Certification for Inpatient Patient admitted to: Inpatient With expected LOS: >2 Midnights Practitioner: I am a practitioner with admitting privileges, knowledge of patient current condition, hospital course, and medical plan of care. Services: Services provided to patient in accordance with Admission requirements found in Title 42 Section 412.3 of the Code of Federal Regulations Patient History Date of Service: 01/21/25 Reason for admission: DAVIS History of Present Illness: 34 yrs old Male with no significant past medical history other than history of alcoholism and substance abuse who had a recent cut in the tendon and nerve damage on the right arm was brought to ER with generalized body pain and abdominal cramps associated with nausea and vomiting. Denies any diarrhea or constipation. He admits using cocaine and amphetamines yesterday. No fever or chills. No chest pain or shortness of breath. No sick contacts. Patient was assessed in the ER and is admitted for further management of acute kidney injury and rhabdomyolysis Home medications list reviewed: Yes - Past Medical/Surgical History Past Medical History: Patient denies medical history Past Surgical History: Reviewed- Non-Contributory -: hand - Family History Family History: Reviewed- Non-Contributory - Social History Smoking Status: Current some day smoker Review of Systems 10-point ROS is otherwise unremarkable Physical Examination - Vital Signs Temperature: 98.9 F Blood Pressure: 158/82 Pulse: 84 Respirations: 18 Pulse Ox (%): 94 - Physical Exam General: Alert, Cooperative, Mild distress HEENT: Atraumatic, Normocephalic Neck: Supple Respiratory: Clear to auscultation bilaterally, Normal air movement Cardiovascular: Regular rate/rhythm, Normal S1 S2 Capillary refill: <2 Seconds Gastrointestinal: Soft and benign, W/out hepatosplenomegaly Musculoskeletal: No clubbing, No swelling Integumentary: No rashes Neurological: Other (Alert awake nonfocal) Lymphatics: No axilla or inguinal lymphadenopathy - Studies Laboratory Data (last 24 hrs) 01/21/25 01/21/25 18:15 18:15 WBC 18.50 H Hgb 18.0 H Hct 51.9 H Plt Count 380 Sodium 130 L Potassium 3.5 BUN 28 H Creatinine 4.67 H Glucose 143 H Total Bilirubin 1.7 H AST 59 H ALT 62 H Alkaline Phosphatase 104 Lipase 19 Assessment and Plan - Plan Rhabdomyolysis Acute kidney injury Elevated LFTs Hypercalcemia Hyponatremia Dehydration Hemoconcentration Elevated CK levels History of alcohol abuse Right hand injury Plan aggressive hydration Monitor CK levels Renal parameters monitor Electrolytes monitor and replace accordingly Monitor LFTs in a.m. Nephrology consulted Monitor CBC in a.m. Advise alcohol cessation Offered measures History of substance abuse Advised cessation GI/DVT prophylaxis Advance directive full code - Advance Directives Does patient have a Living Will: No Does patient have a Durable POA for Healthcare: No
[2025-01-21 21:54] VITALS: BMI 33.8
[2025-01-21 23:08] LABS: Calcium Oxalate Crystals- Ur Few /HPF (None Seen); Sqamous Epithelial <5 /HPF (None Seen); Urine Culture Reflex Order REFLEXED; Urine Microscopic Reflex YN ORDER UMIC
[2025-01-21 23:18] LABS: METHAMPHETAM POSITIVE (NEGATIVE); THC Cannibis POSITIVE (NEGATIVE)
[2025-01-22] MEDS: QUETIAPINE 25 MG TAB PO ONE (01:11)
[2025-01-22] MEDS: HALOPERIDOL LACT 5 MG/ML INJ IV PRN (02:03)
--- NOTE | 2025-01-22 08:39 | P.PN ---
Date of Service: 01/22/25 Subjective: feeling slightly better today abdominal pain more tolerable states he took some methamphetamines and feels thats what led to episode He also had been out in the sun sweating all day since 7am prior to symptoms starting urine was very dark in ED Physical Exam: GEN: Alert, oriented, NAD CV: Regular rate and rhythm, no edema Pulm: Nonlabored respirations on room air, clear bilaterally ABD: soft, mild epigastric tenderness Integumentary: Right upper extremity wrapped MSK: generalized muscle stiffness Neuro: Normal speech, normal affect Problem List: Acute Rhabdomyolysis DAVIS Hyponatremia Polysubstance abuse Alcohol withdrawal Recent hand surgery ~2 weeks ago Acute Rhabdomyolysis DAVIS Hyponatremia on admission, presents with worsening abdominal cramping pains associated with nausea, vomiting. CT abdomen was negative for any acute findings DAVIS / rhabdo secondary to dehydration, polysubstance use, was outside in heat for most of day yesterday Cr 4.67, CKP 1791 on admission Continue IV fluids repeat labs pending. Leukocytosis likely related to dehydration/rhabdo Haldol as needed for agitation Polysubstance abuse Alcohol withdrawal Elevated LFTs Tested positive for amphetamines, cocaine and THC. Some hallucinations reports overnight CIWA protocol. Monitor for withdrawal. Monitor LFTs Cessation advised Recent hand surgery ~2 weeks ago had surgery ~2 weeks ago. Right hand/forearm is wrapped. Recently prescribed cephalexin post-op VTE: Lovenox Code: Full Dispo: Home, ~1 day Time Spent Managing Pts Care (In Minutes): 55
[2025-01-22] MEDS: ENOXAPARIN 30 MG/0.3 ML SQ SCH (10:09)
[2025-01-22 12:54] LABS: Absolute Lymphocytes (CBC) 2.2 K/uL (0.7-4.9); Hematocrit 42.9 % (39.6-49.0); Hemoglobin 14.8 g/dL (13.6-17.9); MCH 30.9 pg (27.0-35.0); MCHC 34.5 g/dL (32.0-36.0); MCV 89.6 fL (80-100); MPV 8.2 fL (7.6-11.3); Nucleated RBC Absolute Count 0.0 (0-0); Nucleated Red Blood Cells % 0.2 % (0-0); RBC Red Blood Cell Count 4.79 M/uL (4.33-5.43); White Blood Count 7.00 thou/uL (4.3-10.9)
[2025-01-22 13:14] LABS: ALT/SGPT 52.0 U/L (16-61); AST/SGOT 63.0 U/L (15-37); Albumin 4.2 g/dL (3.4-5.0); Albumin/Globulin Ratio 1.3 (1.1-1.8); Alkaline Phosphatase 86.0 U/L (45-117); Anion Gap 10.3 mEq/L (5.0-15.0); BUN Blood Urea Nitrogen 30.0 mg/dL (7-18); Globulin 3.2 g/dL (2.3-3.5); Glucose Level 143.0 mg/dL (74-106); Potassium 3.3 mEq/L (3.5-5.1)
[2025-01-22] MEDS: HYDROCODONE/APAP 5/325 MG TAB PO PRN (15:40)
[2025-01-22] MEDS: POTASSIUM CL SA 10 MEQ TAB PO ONE (15:40)
[2025-01-22 23:51] VITALS: O2SAT 98
[2025-01-23 05:39] LABS: Anion Gap 10.9 mEq/L (5.0-15.0); BUN Blood Urea Nitrogen 23.0 mg/dL (7-18); Glucose Level 138.0 mg/dL (74-106); Magnesium 2.4 mg/dL (1.6-2.4); Potassium 3.9 mEq/L (3.5-5.1)
[2025-01-23] MEDS: POTASSIUM CL SA 10 MEQ TAB PO ONE (05:49)
--- NOTE | 2025-01-23 12:04 | P.DS ---
Admission Date: 01/21/25 Discharge Date: 01/23/25 Disposition: ROUTINE DISCHARGE Discharge Condition: GOOD Reason for Admission: DAVIS Brief History of Present Illness: 34 yo M, PMH: alcoholism and substance abuse Patient who had a recent cut in the tendon and nerve damage on the right arm was brought to ER with generalized body pain and abdominal cramps associated with nausea and vomiting. Denies any diarrhea or constipation. He admits using cocaine and amphetamines yesterday. No fever or chills. No chest pain or shortness of breath. No sick contacts. Patient was assessed in the ER and is admitted for further management of acute kidney injury and rhabdomyolysis Hospital Course: Problem List: Acute Rhabdomyolysis, improved DAVIS, improved Hyponatremia, resolved Polysubstance abuse Alcohol withdrawal Recent hand surgery ~2 weeks ago Physician discharge instructions: Patient presented with worsening abdominal cramping pains associated with nausea, vomiting secondary to acute rhabdomyolysis which was secondary to combination of dehydration, polysubstance abuse, heat exhaustion. Labwork on admission with elevated Creatinine (4.67) CPK (1791) associated with electrolyte abnormalities. Tox screen was positive for amphetamines, cocaine and THC. Prior to this episode, patient reported he had been outside in the heat all day sweating since the morning which would be consistent with heat exhaustion / dehydration. Patient received IV fluids and had improvement of his symptoms. Repeat labs done within 24 hours significantly improved compared to admission. Patient was feeling better, abdominal pain improved and was deemed stable for discharge. Recommend repeat blood work in 1 week to monitor renal function and ensure continued improvement. Creatinine on discharge: 1.3 CPK on discharge: 1272 He was noted to have a leukocytosis (18.5) on admission which quickly resolved within 24 hours. Leukocytosis secondary to DAVIS/Rhabdo. WBC on discharge: 7.0 Medications: no new medications Avoid NSAIDs for the next week while kidneys continue to recover and discuss further with your PCP if/when to restart. over the counter tylenol as needed for pain Follow up: PCP 3-5 days Please call to schedule / confirm appointments Physical Exam: GEN: Alert, oriented, NAD CV: Regular rate and rhythm, no edema Pulm: Nonlabored respirations on room air, clear bilaterally ABD: soft, nontender, nondistended Integumentary: Right upper extremity wrapped Neuro: Normal speech, normal affect Vital Signs/Physical Exam: Temp Pulse Resp BP Pulse Ox 97.4 F 55 18 103/64 96 01/23/25 08:00 01/23/25 08:00 01/23/25 08:00 01/23/25 08:00 01/23/25 08:00 Laboratory Data at Discharge: WBC 7.00 thou/uL (4.3-10.9) 01/22/25 12:48 Hgb 14.8 g/dL (13.6-17.9) D 01/22/25 12:48 Hct 42.9 % (39.6-49.0) 01/22/25 12:48 Plt Count 260 thou/uL (152-406) D 01/22/25 12:48 Sodium 137 mEq/L (136-145) 01/23/25 04:29 Potassium 3.9 mEq/L (3.5-5.1) D 01/23/25 04:29 BUN 23 mg/dL (7-18) H 01/23/25 04:29 Creatinine 1.33 mg/dL (0.70-1.30) H 01/23/25 04:29 Glucose 138 mg/dL (74-106) H 01/23/25 04:29 Magnesium 2.4 mg/dL (1.6-2.4) 01/23/25 04:29 Total Bilirubin 0.8 mg/dL (0.2-1.0) 01/22/25 12:48 AST 63 U/L (15-37) H 01/22/25 12:48 ALT 52 U/L (16-61) 01/22/25 12:48 Alkaline Phosphatase 86 U/L (45-117) 01/22/25 12:48 Lipase 19 U/L (13-75) 01/21/25 18:15 Home Medications: Gabapentin 300 mg PO DAILY 01/21/25 Physician Discharge Instructions: Physician discharge instructions: Patient presented with worsening abdominal cramping pains associated with nausea, vomiting secondary to acute rhabdomyolysis which was secondary to combination of dehydration, polysubstance abuse, heat exhaustion. Labwork on admission with elevated Creatinine (4.67) CPK (1791) associated with electrolyte abnormalities. Tox screen was positive for amphetamines, cocaine and THC. Prior to this episode, patient reported he had been outside in the heat all day sweating since the morning which would be consistent with heat exhaustion / dehydration. Patient received IV fluids and had improvement of his symptoms. Repeat labs done within 24 hours significantly improved compared to admission. Patient was feeling better, abdominal pain improved and was deemed stable for discharge. Recommend repeat blood work in 1 week to monitor renal function and ensure continued improvement. Creatinine on discharge: 1.3 CPK on discharge: 1272 He was noted to have a leukocytosis (18.5) on admission which quickly resolved within 24 hours. Leukocytosis secondary to DAVIS/Rhabdo. WBC on discharge: 7.0 Medications: no new medications Avoid NSAIDs for the next week while kidneys continue to recover and discuss further with your PCP if/when to restart. over the counter tylenol as needed for pain Follow up: PCP 3-5 days Please call to schedule / confirm appointments Followup: NONE,NONE [Primary Care Provider] - Time spent managing pt's care (in minutes): 45
[2025-01-23 12:42] VITALS: BP 124/60; TEMP 97.7
[2025-01-24] MEDS ORDERED: ENOXAPARIN 40 MG/0.4 ML SQ SCH (09:00)
== END 2025-01-23 13:56 | disposition home or self-care (01) | DRG 683 ==
LOC: ER 16:26 → 4TH 20:00
PROVIDERS: ADMIT Family Medicine; ATTEND Hospitalist
DX: N17.9 Acute kidney failure, unspecified (principal); E87.1 Hypo-osmolality and hyponatremia; M62.82 Rhabdomyolysis; F10.239 Alcohol dependence with withdrawal, unspecified; E86.0 Dehydration; T67.5XXA Heat exhaustion, unspecified, initial encounter; F15.10 Other stimulant abuse, uncomplicated; F14.10 Cocaine abuse, uncomplicated; F12.10 Cannabis abuse, uncomplicated; E83.52 Hypercalcemia
CPT/HCPCS: 36415; 74177; 80048; 80053; 80307; 81001; 82550; 82803; 83690; 83735; 85025; 87077; 87086; 87088; 87186; 96374; 96375; 99284; J1630; J1650; J2405; J7030; Q9967